=== PATIENT | female | born 1940 | race Caucasian/White ===

== ENCOUNTER 2021-06-26 15:14 | Inpatient (IN) ==
[2021-06-26] MEDS ORDERED: ACETAMINOPHEN 500 MG TABLET PO STA (15:50)
[2021-06-26 15:57] LABS: Bilirubin,Urine Negative (Negative); Blood, Urine Small mg/dL (Negative); Glucose,Urine (UA) Negative (Negative); Ketones,Urine Negative (Negative); Mucus,Urine Occasional /LPF (Occasional); Nitrite,Urine Negative (Negative); Protein,Urine Negative; RBC,Urine 9 /HPF (0-4); Squamous Epithelial Cell,Urine Occasional /HPF (0-10); Urine Appearance Slightly Hazy (Clear); Urine Color Yellow (Yellow); Urine Specific Gravity 1.012 (1.001-1.035); Urine Urobilinogen < 2.0 EU/DL (0.2-1.0)
[2021-06-26 16:14] LABS: Basophils % 0.3 % (0.0-0.8); Eosinophils # 0.2 10*3/uL (0.0-0.87); Hematocrit 36.1 VOL% (35.7-47.0); Hemoglobin 11.8 GM/DL (12.0-16.0); Immature Granulocytes Absolute 0.09 #; Lymphocytes % 10.9 % (21.3-54.2); Mean Corpuscular HGB Conc 32.7 GM/DL (32-36); Mean Corpuscular Volume 88.7 FL (87-102); Mean Platelet Volume 8.7 FL (9.6-12.0); Monocytes % 9.8 % (1.7-12.7); Platelet Count 212 T/CUMM (130-400); Red Blood Count 4.07 MC/CUMM (3.8-5.5); Red Cell Distribution Width 14.7 % (9.3-17.3); White Blood Count 8.9 T/CUMM (4-12)
[2021-06-26 16:31] LABS: Albumin 3.7 G/DL (3.4-5.0); Bilirubin,Total 1.5 MG/DL (0.20-1.00); Calcium 9.1 MG/DL (8.5-10.1); Osmolality,Calculated 270.1 MOS/KG (273-304); Potassium 3.9 MMOL/L (3.5-5.1); Total Protein 7.5 G/DL (6.4-8.2)
[2021-06-26] MEDS ORDERED: cefTRIAXone 1,000 MG in SODIUM CHLORIDE 0.9% 100 ML IV STA (16:57)
[2021-06-26] MEDS ORDERED: methylPREDNISolone SOD SUC 40 MG/1 ML VIAL IV STA (18:19)
[2021-06-26] MEDS ORDERED: AZITHROMYCIN INJ 500 MG in SODIUM CHLORIDE 0.9% 250 ML IV STA (18:19)
[2021-06-26] MEDS ORDERED: ONDANSETRON 4 MG/2 ML VIAL IV PRN (18:57)
[2021-06-26] MEDS ORDERED: ACETAMINOPHEN 325 MG TABLET PO PRN ×2 (18:57→19:28)
[2021-06-26] MEDS: FUROSEMIDE 20 MG TABLET PO SCH (19:05)
[2021-06-26 19:29] LABS: Thyroid Stimulating Hormone 1.03 uIU/ml (0.358-3.74)
[2021-06-26] MEDS ORDERED: DOCUSATE SODIUM 100 MG CAPSULE PO SCH (21:00)
[2021-06-27] MEDS: oxyCODONE/ACETAMINOPHEN 5-325 MG TABLET PO PRN ×3 (00:57→22:41)
[2021-06-27] MEDS: DOCUSATE SODIUM 100 MG CAPSULE PO SCH ×3 (02:15→21:04)
[2021-06-27] MEDS: BIMATOPROST 0.01% OPH SOLN 2.5 ML BOTTLE BOTH EYES SCH ×3 (02:15→21:04)
[2021-06-27] MEDS: MORPHINE ER 15 MG TABLET PO SCH ×3 (02:15→22:41)
[2021-06-27] MEDS: ALFUZOSIN 10 MG TABLET PO SCH ×2 (02:15→21:04)
[2021-06-27] MEDS: APIXABAN 2.5 MG TABLET PO SCH ×3 (02:15→21:04)
[2021-06-27 04:30] LABS: Hematocrit 36.7 VOL% (35.7-47.0); Hemoglobin 11.9 GM/DL (12.0-16.0); Immature Granulocytes % 0.7 %; Immature Granulocytes Absolute 0.04 #; Lymphocytes # 0.5 10*3/uL (1.4-4.0); Lymphocytes % 9.5 % (21.3-54.2); Mean Corpuscular HGB Conc 32.4 GM/DL (32-36); Mean Corpuscular Volume 88.6 FL (87-102); Monocytes % 1.4 % (1.7-12.7); Neutrophils % 88.4 % (38.7-73.9); Platelet Count 217 T/CUMM (130-400); Red Blood Count 4.14 MC/CUMM (3.8-5.5); Red Cell Distribution Width 14.6 % (9.3-17.3); White Blood Count 5.7 T/CUMM (4-12)
[2021-06-27 04:51] LABS: Albumin 3.4 G/DL (3.4-5.0); Bilirubin,Total 1.2 MG/DL (0.20-1.00); Calcium 9.5 MG/DL (8.5-10.1); Osmolality,Calculated 277.8 MOS/KG (273-304); Potassium 3.5 MMOL/L (3.5-5.1); Total Protein 7.8 G/DL (6.4-8.2)
[2021-06-27] MEDS: methylPREDNISolone SOD SUC 40 MG/1 ML VIAL IV SCH ×3 (06:05→17:32)
[2021-06-27] MEDS ORDERED: PANTOPRAZOLE 40 MG TABLET PO SCH (09:00)
[2021-06-27] MEDS: PANTOPRAZOLE 40 MG TABLET PO SCH (09:29)
[2021-06-27] MEDS: FUROSEMIDE 40 MG TABLET PO SCH (09:29)
[2021-06-27] MEDS: METOPROLOL SUCCINATE XL 100 MG TABLET PO SCH (09:30)
[2021-06-27] MEDS: DILTIAZEM CD 120 MG CAPSULE PO SCH (09:30)
[2021-06-27] MEDS: cefTRIAXone 1,000 MG in SODIUM CHLORIDE 0.9% 100 ML IV SCH (17:33)
[2021-06-27] MEDS: FUROSEMIDE 20 MG TABLET PO SCH (18:02)
[2021-06-28] MEDS: methylPREDNISolone SOD SUC 40 MG/1 ML VIAL IV SCH ×3 (02:47→21:02)
[2021-06-28 06:55] LABS: Hematocrit 34.3 VOL% (35.7-47.0); Hemoglobin 11.4 GM/DL (12.0-16.0); Immature Granulocytes Absolute 0.07 #; Lymphocytes # 0.6 10*3/uL (1.4-4.0); Lymphocytes % 8.5 % (21.3-54.2); Mean Corpuscular HGB Conc 33.2 GM/DL (32-36); Mean Corpuscular Volume 86.8 FL (87-102); Mean Platelet Volume 9.2 FL (9.6-12.0); Monocytes % 2.6 % (1.7-12.7); Neutrophils % 87.9 % (38.7-73.9); Platelet Count 248 T/CUMM (130-400); Red Blood Count 3.95 MC/CUMM (3.8-5.5); Red Cell Distribution Width 14.5 % (9.3-17.3); White Blood Count 7.3 T/CUMM (4-12)
[2021-06-28 07:23] LABS: Calcium 9.7 MG/DL (8.5-10.1); Osmolality,Calculated 282.8 MOS/KG (273-304); Potassium 3.1 MMOL/L (3.5-5.1)
[2021-06-28] MEDS: PANTOPRAZOLE 40 MG TABLET PO SCH (09:14)
[2021-06-28] MEDS: POTASSIUM CHLORIDE 10 MEQ TABLET PO SCH (09:14)
[2021-06-28] MEDS: FUROSEMIDE 40 MG TABLET PO SCH (09:14)
[2021-06-28] MEDS: METOPROLOL SUCCINATE XL 100 MG TABLET PO SCH (09:15)
[2021-06-28] MEDS: DILTIAZEM CD 120 MG CAPSULE PO SCH (09:15)
[2021-06-28] MEDS: DOCUSATE SODIUM 100 MG CAPSULE PO SCH ×2 (09:15→20:59)
[2021-06-28] MEDS: APIXABAN 2.5 MG TABLET PO SCH ×2 (09:15→21:00)
[2021-06-28] MEDS: BIMATOPROST 0.01% OPH SOLN 2.5 ML BOTTLE BOTH EYES SCH ×2 (09:15→21:00)
[2021-06-28] MEDS: cefTRIAXone 1,000 MG in SODIUM CHLORIDE 0.9% 100 ML IV SCH (17:45)
[2021-06-28] MEDS: oxyCODONE/ACETAMINOPHEN 5-325 MG TABLET PO PRN (17:45)
[2021-06-28] MEDS: POTASSIUM CHLORIDE 20 MEQ TABLET PO PRN ×2 (17:45→18:54)
[2021-06-28] MEDS: ALFUZOSIN 10 MG TABLET PO SCH (20:56)
[2021-06-29] MEDS: oxyCODONE/ACETAMINOPHEN 5-325 MG TABLET PO PRN ×2 (01:31→08:49)
[2021-06-29 06:56] LABS: Calcium 9.3 MG/DL (8.5-10.1); Potassium 3.7 MMOL/L (3.5-5.1)
[2021-06-29 08:03] VITALS: BP 168/73
[2021-06-29] MEDS: DOCUSATE SODIUM 100 MG CAPSULE PO SCH (08:43)
[2021-06-29] MEDS: FUROSEMIDE 40 MG TABLET PO SCH (08:44)
[2021-06-29] MEDS: APIXABAN 2.5 MG TABLET PO SCH (08:44)
[2021-06-29] MEDS: methylPREDNISolone SOD SUC 40 MG/1 ML VIAL IV SCH (08:44)
[2021-06-29] MEDS: DILTIAZEM CD 120 MG CAPSULE PO SCH (08:44)
[2021-06-29] MEDS: PANTOPRAZOLE 40 MG TABLET PO SCH (08:44)
[2021-06-29] MEDS: METOPROLOL SUCCINATE XL 100 MG TABLET PO SCH (08:44)
[2021-06-29] MEDS: POTASSIUM CHLORIDE 10 MEQ TABLET PO SCH (08:44)
[2021-06-29] MEDS: BIMATOPROST 0.01% OPH SOLN 2.5 ML BOTTLE BOTH EYES SCH (08:45)
== END 2021-06-29 10:49 | disposition home or self-care (01) | DRG 291 ==
LOC: EDUNIT# → N.ED 15:14 → N.EDINP 18:57 → N.TELES 21:38
PROVIDERS: ADMIT Internal Medicine; ATTEND Internal Medicine

== ENCOUNTER 2021-09-05 09:56 | Inpatient (IN) ==
[2021-09-05] MEDS ORDERED: SODIUM CHLORIDE 0.9% 1,000 ML IV STA (10:20)
[2021-09-05] MEDS ORDERED: ACETAMINOPHEN 500 MG TABLET PO STA (10:21)
[2021-09-05 10:47] LABS: ABG Base Excess 3.1 MMOL/L (-2.5-2.5); ABG HCO3 27.2 MMOL/L (20-26); ABG PCO2 34.2 MM HG (35-48); ABG PH 7.491 (7.35-7.45); ABG PO2 82.3 MM HG (80-95)
[2021-09-05 10:53] LABS: Bacteria,Urine Occasional /HPF (Few); Bilirubin,Urine Negative (Negative); Blood, Urine Moderate mg/dL (Negative); Glucose,Urine (UA) Negative (Negative); Ketones,Urine Negative (Negative); Mucus,Urine Occasional /LPF (Occasional); Nitrite,Urine Negative (Negative); Protein,Urine Negative; RBC,Urine 6 /HPF (0-4); Squamous Epithelial Cell,Urine Occasional /HPF (0-10); Urine Appearance CLEAR (Clear); Urine Color Yellow (Yellow); Urine Specific Gravity 1.012 (1.001-1.035); Urine Urobilinogen < 2.0 EU/DL (<2.0)
[2021-09-05 10:59] LABS: Basophils # 0.1 10*3/uL (0.0-0.2); Basophils % 0.5 % (0.0-0.8); Eosinophils # 0.1 10*3/uL (0.0-0.87); Eosinophils % 0.7 % (0.00-10.9); Hematocrit 39.9 VOL% (35.7-47.0); Immature Granulocytes % 0.9 %; Lymphocytes # 1.7 10*3/uL (1.4-4.0); Lymphocytes % 14.2 % (21.3-54.2); Mean Corpuscular HGB Conc 32.6 GM/DL (32-36); Mean Corpuscular Volume 90.1 FL (87-102); Monocytes % 8.8 % (1.7-12.7); Neutrophils % 74.9 % (38.7-73.9); Platelet Count 323 T/CUMM (130-400); Red Blood Count 4.43 MC/CUMM (3.8-5.5); White Blood Count 11.7 T/CUMM (4-12)
[2021-09-05] MEDS ORDERED: cefTRIAXone 1,000 MG in SODIUM CHLORIDE 0.9% 100 ML IV STA (11:11)
[2021-09-05 11:40] LABS: Alanine Aminotransferase 16 U/L (13-56); Albumin 3.7 G/DL (3.4-5.0); Alkaline Phosphatase 86 U/L (45-117); Aspartate Amino Transferase 16 U/L (0-37); Blood Urea Nitrogen 16 MG/DL (7-18); Calcium 9.4 MG/DL (8.5-10.1); Carbon Dioxide 28 MMOL/L (21-32); Estimated Glom Filtration Rate 65 ML/MIN; Glucose 132 MG/DL (74-106); Osmolality,Calculated 272.1 MOS/KG (273-304); Potassium 3.6 MMOL/L (3.5-5.1); Sodium 135 MMOL/L (136-145); Total Protein 7.4 G/DL (6.4-8.2)
[2021-09-05] MEDS ORDERED: oxyCODONE/ACETAMINOPHEN 5-325 MG TABLET PO ONE (13:40)
[2021-09-05] MEDS ORDERED: ACETAMINOPHEN 325 MG TABLET PO PRN (13:57)
[2021-09-05] MEDS ORDERED: ONDANSETRON 4 MG/2 ML VIAL IV PRN (13:57)
[2021-09-05] MEDS ORDERED: SODIUM CHLORIDE 0.9% 500 ML IV STA (14:06)
[2021-09-05] MEDS ORDERED: SODIUM CHLORIDE 0.65% NASAL SPRAY 45 ML BOTTLE BOTH NARES PRN (14:07)
[2021-09-05] MEDS ORDERED: GLUCAGON 1 MG VIAL IM PRN (15:12)
[2021-09-05] MEDS ORDERED: DEXTROSE 10% 250 ML BAG IV PRN (15:12)
[2021-09-05] MEDS ORDERED: INFLUENZA VIRUS VACCINE 0.5 ML SYRINGE IM ONE (16:41)
[2021-09-05] MEDS: ALFUZOSIN 10 MG TABLET PO SCH (22:03)
[2021-09-05] MEDS: DOCUSATE SODIUM 100 MG CAPSULE PO SCH (22:03)
[2021-09-05] MEDS: FUROSEMIDE 20 MG TABLET PO SCH (22:03)
[2021-09-05] MEDS: BIMATOPROST 0.01% OPH SOLN 2.5 ML BOTTLE BOTH EYES SCH (22:06)
[2021-09-05] MEDS: APIXABAN 5 MG TABLET PO SCH (22:06)
[2021-09-06 05:19] LABS: Albumin 2.7 G/DL (3.4-5.0); Bilirubin,Total 2.1 MG/DL (0.20-1.00); Calcium 8.6 MG/DL (8.5-10.1); Osmolality,Calculated 277.5 MOS/KG (273-304); Potassium 3.3 MMOL/L (3.5-5.1); Total Protein 6.5 G/DL (6.4-8.2)
[2021-09-06] MEDS: oxyCODONE/ACETAMINOPHEN 5-325 MG TABLET PO PRN ×3 (05:22→23:32)
[2021-09-06 05:24] LABS: Basophils % 0.4 % (0.0-0.8); Eosinophils % 0.4 % (0.00-10.9); Immature Granulocytes % 0.6 %; Immature Granulocytes Absolute 0.05 #; Lymphocytes # 1.2 10*3/uL (1.4-4.0); Lymphocytes % 14.4 % (21.3-54.2); Mean Corpuscular HGB Conc 32.4 GM/DL (32-36); Mean Corpuscular Volume 91.9 FL (87-102); Mean Platelet Volume 9.4 FL (9.6-12.0); Monocytes % 10.6 % (1.7-12.7); Neutrophils % 73.6 % (38.7-73.9); Red Cell Distribution Width 14.8 % (9.3-17.3)
[2021-09-06 05:30] LABS: White Blood Count 8.1 T/CUMM (4-12)
[2021-09-06 05:31] LABS: Platelet Count 207 T/CUMM (130-400)
[2021-09-06] MEDS: PANTOPRAZOLE 40 MG TABLET PO SCH (09:23)
[2021-09-06] MEDS: predniSONE 10 MG TABLET PO SCH (09:24)
[2021-09-06] MEDS: POTASSIUM CHLORIDE 20 MEQ TABLET PO PRN ×3 (09:24→21:42)
[2021-09-06] MEDS: APIXABAN 5 MG TABLET PO SCH ×2 (09:25→21:43)
[2021-09-06] MEDS: METOPROLOL SUCCINATE XL 100 MG TABLET PO SCH (09:25)
[2021-09-06] MEDS: DOCUSATE SODIUM 100 MG CAPSULE PO SCH ×2 (09:25→21:43)
[2021-09-06] MEDS: DILTIAZEM CD 120 MG CAPSULE PO SCH (09:26)
[2021-09-06] MEDS: BIMATOPROST 0.01% OPH SOLN 2.5 ML BOTTLE BOTH EYES SCH ×2 (09:26→21:46)
[2021-09-06] MEDS: MULTIVITAMIN (OCUVITE) TABLET PO SCH (09:32)
[2021-09-06] MEDS: POTASSIUM CHLORIDE 10 MEQ TABLET PO SCH (09:34)
[2021-09-06] MEDS: cefTRIAXone 1,000 MG in SODIUM CHLORIDE 0.9% 100 ML IV SCH (09:41)
[2021-09-06] MEDS: ALFUZOSIN 10 MG TABLET PO SCH (21:43)
[2021-09-06] MEDS: FUROSEMIDE 20 MG TABLET PO SCH (21:48)
[2021-09-07 05:48] LABS: Basophils % 0.3 % (0.0-0.8); Eosinophils # 0.1 10*3/uL (0.0-0.87); Eosinophils % 1.3 % (0.00-10.9); Hematocrit 31.7 VOL% (35.7-47.0); Hemoglobin 10.3 GM/DL (12.0-16.0); Immature Granulocytes % 0.7 %; Immature Granulocytes Absolute 0.05 #; Lymphocytes # 1.5 10*3/uL (1.4-4.0); Lymphocytes % 20.6 % (21.3-54.2); Mean Corpuscular HGB Conc 32.5 GM/DL (32-36); Mean Corpuscular Volume 92.2 FL (87-102); Mean Platelet Volume 9.8 FL (9.6-12.0); Monocytes % 11.8 % (1.7-12.7); Neutrophils % 65.3 % (38.7-73.9); Platelet Count 211 T/CUMM (130-400); Red Blood Count 3.44 MC/CUMM (3.8-5.5); Red Cell Distribution Width 14.6 % (9.3-17.3); White Blood Count 7.1 T/CUMM (4-12)
[2021-09-07 06:05] LABS: Calcium 8.9 MG/DL (8.5-10.1); Osmolality,Calculated 278.4 MOS/KG (273-304); Potassium 3.9 MMOL/L (3.5-5.1)
[2021-09-07] MEDS: DOCUSATE SODIUM 100 MG CAPSULE PO SCH ×2 (10:17→21:12)
[2021-09-07] MEDS: MULTIVITAMIN (OCUVITE) TABLET PO SCH (10:18)
[2021-09-07] MEDS: DILTIAZEM CD 120 MG CAPSULE PO SCH (10:18)
[2021-09-07] MEDS: predniSONE 10 MG TABLET PO SCH (10:18)
[2021-09-07] MEDS: PANTOPRAZOLE 40 MG TABLET PO SCH (10:18)
[2021-09-07] MEDS: METOPROLOL SUCCINATE XL 100 MG TABLET PO SCH (10:18)
[2021-09-07] MEDS: POTASSIUM CHLORIDE 20 MEQ TABLET PO PRN (10:18)
[2021-09-07] MEDS: APIXABAN 5 MG TABLET PO SCH ×2 (10:18→21:12)
[2021-09-07] MEDS: BIMATOPROST 0.01% OPH SOLN 2.5 ML BOTTLE BOTH EYES SCH ×2 (10:19→21:12)
[2021-09-07] MEDS: oxyCODONE/ACETAMINOPHEN 5-325 MG TABLET PO PRN ×2 (10:27→18:41)
[2021-09-07] MEDS: cefTRIAXone 1,000 MG in SODIUM CHLORIDE 0.9% 100 ML IV SCH (10:28)
[2021-09-07] MEDS: POTASSIUM CHLORIDE 10 MEQ TABLET PO SCH (11:17)
[2021-09-07] MEDS: FUROSEMIDE 20 MG TABLET PO SCH (18:41)
[2021-09-07] MEDS: ALFUZOSIN 10 MG TABLET PO SCH (21:12)
[2021-09-08] MEDS: oxyCODONE/ACETAMINOPHEN 5-325 MG TABLET PO PRN ×3 (02:47→21:29)
[2021-09-08 04:38] LABS: Basophils % 0.5 % (0.0-0.8); Eosinophils # 0.1 10*3/uL (0.0-0.87); Eosinophils % 1.6 % (0.00-10.9); Hematocrit 32.9 VOL% (35.7-47.0); Hemoglobin 10.2 GM/DL (12.0-16.0); Immature Granulocytes % 0.7 %; Immature Granulocytes Absolute 0.04 #; Lymphocytes # 1.3 10*3/uL (1.4-4.0); Lymphocytes % 23.7 % (21.3-54.2); Mean Corpuscular Volume 91.9 FL (87-102); Monocytes % 11.3 % (1.7-12.7); Neutrophils % 62.2 % (38.7-73.9); Platelet Count 208 T/CUMM (130-400); Red Blood Count 3.58 MC/CUMM (3.8-5.5); Red Cell Distribution Width 14.4 % (9.3-17.3); White Blood Count 5.6 T/CUMM (4-12)
[2021-09-08 05:00] LABS: Calcium 8.8 MG/DL (8.5-10.1); Osmolality,Calculated 274.7 MOS/KG (273-304); Potassium 3.7 MMOL/L (3.5-5.1)
[2021-09-08] MEDS ORDERED: ALBUTEROL/IPRATROPIUM 3 ML NEB RESP TX PRN (09:02)
[2021-09-08] MEDS: MULTIVITAMIN (OCUVITE) TABLET PO SCH (09:39)
[2021-09-08] MEDS: POTASSIUM CHLORIDE 10 MEQ TABLET PO SCH (09:40)
[2021-09-08] MEDS: DOCUSATE SODIUM 100 MG CAPSULE PO SCH ×2 (09:40→21:29)
[2021-09-08] MEDS: BIMATOPROST 0.01% OPH SOLN 2.5 ML BOTTLE BOTH EYES SCH ×2 (09:40→21:30)
[2021-09-08] MEDS: DILTIAZEM CD 120 MG CAPSULE PO SCH (09:40)
[2021-09-08] MEDS: APIXABAN 5 MG TABLET PO SCH ×2 (09:40→21:29)
[2021-09-08] MEDS: predniSONE 10 MG TABLET PO SCH (09:40)
[2021-09-08] MEDS: METOPROLOL SUCCINATE XL 100 MG TABLET PO SCH (09:40)
[2021-09-08] MEDS: PANTOPRAZOLE 40 MG TABLET PO SCH (09:40)
[2021-09-08] MEDS: cefTRIAXone 1,000 MG in SODIUM CHLORIDE 0.9% 100 ML IV SCH (09:41)
[2021-09-08] MEDS: ALBUTEROL/IPRATROPIUM 3 ML NEB RESP TX SCH ×2 (11:17→19:30)
[2021-09-08] MEDS: POTASSIUM CHLORIDE 20 MEQ TABLET PO PRN (11:50)
[2021-09-08] MEDS: FUROSEMIDE 20 MG TABLET PO SCH (18:10)
[2021-09-08] MEDS: ALFUZOSIN 10 MG TABLET PO SCH (21:29)
[2021-09-09] MEDS: oxyCODONE/ACETAMINOPHEN 5-325 MG TABLET PO PRN (05:16)
[2021-09-09 06:33] LABS: Calcium 9.1 MG/DL (8.5-10.1); Osmolality,Calculated 273.7 MOS/KG (273-304); Potassium 3.4 MMOL/L (3.5-5.1)
[2021-09-09] MEDS: ALBUTEROL/IPRATROPIUM 3 ML NEB RESP TX SCH (06:53)
[2021-09-09] MEDS: APIXABAN 5 MG TABLET PO SCH (08:59)
[2021-09-09] MEDS: POTASSIUM CHLORIDE 10 MEQ TABLET PO SCH (08:59)
[2021-09-09] MEDS: METOPROLOL SUCCINATE XL 100 MG TABLET PO SCH (08:59)
[2021-09-09] MEDS: predniSONE 10 MG TABLET PO SCH (08:59)
[2021-09-09] MEDS: PANTOPRAZOLE 40 MG TABLET PO SCH (08:59)
[2021-09-09] MEDS: DILTIAZEM CD 120 MG CAPSULE PO SCH (09:00)
[2021-09-09] MEDS: DOCUSATE SODIUM 100 MG CAPSULE PO SCH (09:00)
[2021-09-09] MEDS ORDERED: NYSTATIN 500,000 UNIT/5 ML UDCUP SWISH/SWAL SCH (09:00)
[2021-09-09] MEDS ORDERED: FLUCONAZOLE 100 MG TABLET PO SCH (09:00)
[2021-09-09] MEDS: MULTIVITAMIN (OCUVITE) TABLET PO SCH (09:01)
[2021-09-09] MEDS: cefTRIAXone 1,000 MG in SODIUM CHLORIDE 0.9% 100 ML IV SCH (09:05)
[2021-09-09] MEDS: BIMATOPROST 0.01% OPH SOLN 2.5 ML BOTTLE BOTH EYES SCH (09:05)
[2021-09-09 10:02] VITALS: BP 138/66
== END 2021-09-09 11:10 | disposition home health service (06) | DRG 175 ==
LOC: EDBD → N.ED 09:56 → N.EDINP 13:57 → N.TELEN 15:06
PROVIDERS: ADMIT Internal Medicine; ATTEND Internal Medicine